=== PATIENT | female | born 1945 | race Caucasian/White ===

== ENCOUNTER 2021-07-14 11:54 | Inpatient (IN) | payer MEDICARE, SELFPAY ==
[2021-07-14] VITALS (54 sets, daily range): BP systolic 99–138; BP diastolic 56–88; PULSE 67–75; RESP 13–41; TEMP 36–36.9; O2SAT 95–100
--- NOTE | 2021-07-14 11:48 | W.ED.GENAD ---
Discharge Plan Disposition Patient Disposition: [facility]IENT Condition: Stable Discharge Details Clinical Impression: Acute GI bleeding, Bloody diarrhea Admit Date/Time: 07/14/21 13:22 Admit Provider: Mark Fowler Attending Provider: Mark Fowler Primary Care Provider: Ana Win ED Provider: Renetta Quick Discharge Data Discharge Date/Time-TO BE ENTERED AT DEPARTURE: 07/14/21 14:10 Medical Decision Making 75-year-old female with a history of atrial fibrillation on Xarelto almost 4 weeks status post a TAVR and started on aspirin at [facility] presents for bloody diarrhea today. She admits to black tarry stools. Vitals within normal limits. Patient appears comfortable and nontoxic. Heme positive stool which is maroon in color. Her abdomen is soft and nontender. Labs obtained on arrival and note a hemoglobin of 10.9, no previous labs to compare. WBC 10.58. Troponin negative. Do not indication for imaging at this time as she has a history of bleeding ulcer in the past and denies any pain, abdomen is nontender and she appears nontoxic. Will give a dose of Protonix, start IV fluids and admit to the hospital for serial hemoglobin and with likely plan for upper endoscopy. Patient got up to use the commode and complained of feeling dizzy. Case discussed with hospitalist who accepts patient for admission. Medical Records Medical records reviewed: Yes I reviewed the patient's medical records. Lab Data Lab results reviewed: Yes I reviewed the patient's lab results. ECG Data Attestation: I personally reviewed and interpreted this ECG (s) as follows: Interpretation: rate of 71, sinus, no acute ST elevation or depression. MN 171, QRS 83, QTc 444. HPI General Mode of arrival: ambulatory. Date/Time Provider Initiated Documentation: 07/14/21 12:07. Limitations to Documentation: no limitations. Information obtained by: patient. HPI Narrative: Patient is a 75-year-old female with a history of atrial fibrillation on Xarelto who was almost 4 weeks status post TAVR at [facility] presents for bloody diarrhea since this morning. She states she had 3 loose large bowel movements which appeared black in the toilet. She does admit to some episodes of sweating around the time of diarrhea. She denies any fever, nausea, vomiting, chest pain, shortness of breath, abdominal pain or rectal pain. She states she has been taking Xarelto for many years for her atrial fibrillation. She states she was started on a baby aspirin after her TAVR. She was also on antibiotics recently for a groin site infection status post her TAVR. She states she finished antibiotics 3 days ago. She does admit to history of a bleeding ulcer seen at [facility] several years ago. Related Data Home Medications Medication Instructions Recorded Confirmed Lactobacillus acidoph-L. bifid 1 cap PO DAILY 07/14/21 07/14/21 Xarelto 20 mg PO DAILY 07/14/21 07/14/21 atenolol 25 mg PO BID 07/14/21 07/14/21 cholecalciferol (vitamin D3) 125 mcg PO DAILY 07/14/21 07/14/21 [Vitamin D3] coenzyme Q10 [CoQ-10] 200 mg PO DAILY 07/14/21 07/14/21 magnesium citrate 225 mg PO DAILY 07/14/21 07/14/21 montelukast [Singulair] 10 mg PO DAILY 07/14/21 07/14/21 rosuvastatin [Crestor] 10 mg PO DAILY 07/14/21 07/14/21 spironolactone [Aldactone] 25 mg PO DAILY 07/14/21 07/14/21 venlafaxine [Effexor XR] 37.5 mg PO DAILY 07/14/21 07/14/21 vitamin [id number] B1 100 ml IM DAILY 07/14/21 07/14/21 vitamin K2 100 mcg PO DAILY 07/14/21 07/14/21 ascorbic acid (vitamin C) [Vitamin 500 mg PO BID #60 tab 07/16/21 C] ferrous sulfate 225 mg PO DAILY #100 ml 07/16/21 pantoprazole [Protonix] 40 mg PO DAILY #60 tab 07/16/21 sucralfate 1 g PO AC & HS #120 tab 07/16/21 Previous Rx's Medication Instructions Recorded ascorbic acid (vitamin C) [Vitamin 500 mg PO BID #60 tab 07/16/21 C] ferrous sulfate 225 mg PO DAILY #100 ml 07/16/21 pantoprazole [Protonix] 40 mg PO DAILY #60 tab 07/16/21 sucralfate 1 g PO AC & HS #120 tab 07/16/21 Allergies Allergy/AdvReac Type Severity Reaction Status Date / Time adhesive tape Allergy Intermediate Other (See Unverified 07/14/21 12:24 Comment) Sulfa (Sulfonamide Allergy Intermediate Hives Unverified 07/14/21 12:24 Antibiotics) succinylcholine AdvReac Severe Other (See Unverified 07/14/21 12:24 Comment) ibuprofen AdvReac Intermediate Other (See Unverified 07/14/21 12:24 Comment) Opioids - Morphine Analogues AdvReac Intermediate Other (See Unverified 07/14/21 12:24 Comment) Review of Systems All systems reviewed & are unremarkable except as noted in HPI and below Constitutional Constitutional: Reports as per HPI, Denies chills and Denies fever(s) Eyes Eyes: Denies blurry vision ENT Ears, Nose, Mouth, and Throat: Denies dizziness, Denies sore throat and Denies throat swelling Cardiovascular Cardiovascular: Denies chest pain and Denies dyspnea Respiratory Respiratory: Denies cough and Denies dyspnea Gastrointestinal Gastrointestinal: Denies abdominal pain, Reports melena, Denies diarrhea and Denies vomiting Genitourinary Genitourinary: Denies hematuria and Denies dysuria Musculoskeletal Musculoskeletal: Denies back pain and Denies numbness Integumentary/Breasts Skin/Breast: Denies lesions and Denies rash Neurologic Neurologic: Denies dizziness, Denies localized weakness and Denies numbness Allergic/Immunologic Allergic/Immunologic: Denies throat swelling [facility] Medical History Detached retina, left Replaced 50yrs ago with a plastic buckle Surgical History History of heart valve replacement TAVR 06/17/21 at [facility] History of knee replacement Bilateral knee replament in 2006, Right knee redone in 2014 History of shoulder surgery Both Shoulders replaced Right one in 2014, left in 2017. Left one got infection had a spacer for a year then had to be redone backwards. Social History Smoking/Tobacco Use Status: Never Smoking risk assessment performed?: Yes Alcohol Intake: never Drug use: Never Substance use type: does not use Do you feel safe at home: Yes Additional Social history: Lives at home with her and her dog Exam Const General: cooperative and no acute distress HENMT Head: normal to inspection Face and sinus: normal facial exam Eyes General: appearance normal, both eyes and all related structures EOM: EOM intact bilaterally Neck Neck: normal visual inspection and No submandibular swelling Lymphatic: no lymphadenopathy noted Chest Chest: normal inspection of the chest and no tenderness Resp Effort & Inspection: normal respiratory effort and able to speak in complete sentences Auscultation: clear to auscultation bilaterally Cardio Rate: regular rate Rhythm: regular rhythm GI Inspection: normal to inspection Palpation: soft, not firm, not rigid and nontender Auscultation: hypoactive bowel sounds Rectal Exam - female: heme positive stool Rectal exam heme positive - female: gross blood, No hemorrhoids (difficult to fully assess due to dried blood), No mass and other (Dried maroon blood around the anus.) Skin General skin exam: no rashes or lesions noted Neuro General: patient alert, patient awake and patient oriented x3 Cognition: normal cognition Speech: speech normal Motor: muscle tone normal throughout Sensory Exam: no sensory deficits noted Extrem General: normal to inspection, full ROM, capillary refill normal, no calf tenderness bilaterally and no edema Upper/lower leg/hip images: 1. 2mm x 1cm open wound R groin, healing well, no drainage, tenderness, erythema, edema. Psych Appearance: grossly normal Mental Status: mental status grossly normal Speech and Movement: speech and movement normal Affect: normal affect
--- NOTE | 2021-07-14 12:00 | RT.EKG_ITS ---
APPROVED REPORT Exam: Resting ECG Reason for Exam: gi bleed Patient Location: E HR:71 bpm ECG Measurements Heart Rate 71 AXIS MT 171 P 0 QRSd 84 QRS 20 QT 409 T 19 QTc 444 Conclusion Sinus rhythm...normal P axis, V-rate 60- 99. Sinus. No STEMI. I have reviewed and interpreted ECG and agree with software generated interpretation.
[2021-07-14 12:33] LABS: Abs Immature Grans 0.03 10^3/uL (0.0-0.06); Absolute Basophil Count 0.08 10^3/uL (0.0-0.2); Absolute Lymphocyte Count 1.88 10^3/uL (1.2-3.4); Absolute Monocyte Count 0.77 10^3/uL (0.1-0.8); Absolute Neutrophil Count 7.72 10^3/uL (1.2-6.7); Basophils % 0.8; Eosinophils % 0.9; HCT 34.7 % (36.0-46.0); HGB 10.9 g/dL (11.2-15.7); Immature Grans % 0.3; Lymphocytes % 17.8; MCH 28.2 pg (27.0-33.0); MCHC 31.4 % (32.0-36.0); MCV 89.7 fL (80-95); MPV 9.6 fL (8.0-11.0); Monocytes % 7.3; Neutrophils % 72.9; Nucleated RBC 0 %; Platelet Count 274 10^3/uL (130-400); RBC 3.87 10^6/uL (3.93-5.22); RDW 13.2 % (11.7-14.6); RDW-SD 43.5 fL; WBC 10.58 10^3/uL (4.4-10.8)
[2021-07-14 12:47] LABS: BUN 41 mg/dL (7-18); Calcium 8.6 mg/dL (8.5-10.1); Glucose 96 mg/dL (74-106)
[2021-07-14 12:48] LABS: ALT 19 U/L (14-59); AST 17 U/L (15-37); Alkaline Phosphatase 66 U/L (46-116); Anion Gap 4.9 mmol/L (3-11); Bilirubin, Total 0.3 mg/dL (0.2-1.0); CO2 30.1 mmol/L (21.0-32.0); Chloride 108 mmol/L (98-107); Magnesium 2.1 mg/dL (1.8-2.4); Potassium 4.7 mmol/L (3.5-5.1); Sodium 143 mmol/L (136-145); Total Protein 6.9 g/dL (6.4-8.2); Troponin I < 0.05 ng/mL (<0.06)
[2021-07-14] MEDS: Normal Saline Flush 10 ML SYR IVP ×2 (13:50→20:40)
[2021-07-14] MEDS: Normal Saline 250 ML IV (13:50)
[2021-07-14] MEDS: Pantoprazole 40 MG VIAL IVP ×2 (13:50→20:39)
[2021-07-14 13:55] LABS: Bilirubin Negative (Negative); Blood Large (Negative); Clarity Sl Cloudy (Clear); Epithelial Cells Moderate HPF (Negative); Glucose Negative (Negative); Ketones Negative (Negative); Leukocyte Esterase Trace (Negative); Nitrite Negative (Negative); Specific Gravity 1.025 (1.005-1.025); Urobilinogen 0.2 EU/dL (Up TO 0.2); pH 5.5 (5-8)
[2021-07-14 13:56] LABS: Bacteria Many HPF (Negative); C & S Indicated? No/Sq. Contamination; Casts 0-2 Hyaline LPF (Negative); Crystals Negative HPF (Negative); Mucus Trace (Negative); Other Cells Mod Transitional (Negative)
[2021-07-14 14:01] LABS: Source Nasal/Nares
[2021-07-14 14:55] LABS: COVID-19 PCR Negative (Negative)
--- NOTE | 2021-07-14 15:07 | W.PM.HP.N ---
Date of service: 07/14/21 Time of Service: 15:07 Assessment and Plan Assessment and plan (1) Acute GI bleeding: Status: Acute Assessment and plan: vitals stable, H&H . continue protonix 40 mg IV BID stop asa and xarelto. keep NPO, surgical consult cycle H&H will check cdiff in setting of recent antibiotic use for groin infection (2) S/P TAVR (transcatheter aortic valve replacement): Status: Chronic Assessment and plan: stable, will monitor per outpatient cardiology. (3) Afib: Status: Chronic Assessment and plan: rate controlled continue home medication hold anticoagulation discussed with Dr Fowler History of Present Illness History of Present Illness Chief Complaint: gi bleed Narrative: presents to ED for reports of black tarry stooling, feeling like headed. has had a remote history of gi bleeding. recent TAVR. anticoagulated on xarelto for history of afib. new medication since TAVR is asa. she was also treated postoperatively for a groin site infection with antibiotics. patient is hemodynamically stable with no further bleeding noted. Hospitalist contacted and will be referred to observation. she has been given IV protonix. Review of Systems All systems reviewed & are unremarkable except as noted in HPI and below [facility] Medical History (Updated 07/14/21 @ 15:15 by Fidelia Mukherjee NP) Detached retina, left Replaced 50yrs ago with a plastic buckle Surgical History (Updated 07/14/21 @ 15:18 by Fidelia Mukherjee NP) History of heart valve replacement TAVR 06/17/21 at [facility] History of knee replacement Bilateral knee replament in 2005, Right knee redone in 2014 History of shoulder surgery Both Shoulders replaced Right one in 2014, left in 2016. Left one got infection had a spacer for a year then had to be redone backwards. Social History Smoking/Tobacco Use Status: Never Smoking risk assessment performed?: Yes Alcohol Intake: never Drug use: Never Substance use type: does not use Do you feel safe at home: Yes Additional Social history: Lives at home with her and her dog Meds Allergies and Home Medications Allergies Allergy/AdvReac Type Severity Reaction Status Date / Time adhesive tape Allergy Intermediate Other (See Unverified 07/14/21 12:24 Comment) Sulfa (Sulfonamide Allergy Intermediate Hives Unverified 07/14/21 12:24 Antibiotics) succinylcholine AdvReac Severe Other (See Unverified 07/14/21 12:24 Comment) ibuprofen AdvReac Intermediate Other (See Unverified 07/14/21 12:24 Comment) Opioids - Morphine Analogues AdvReac Intermediate Other (See Unverified 07/14/21 12:24 Comment) Home Medications Medication Instructions Recorded Confirmed Type Lactobacillus acidoph-L. bifid 1 cap PO DAILY 07/14/21 07/14/21 History aspirin [Aspirin Low Dose] 81 mg PO DAILY 07/14/21 07/14/21 History atenolol 25 mg PO BID 07/14/21 07/14/21 History cholecalciferol (vitamin D3) 125 mcg PO DAILY 07/14/21 07/14/21 History [Vitamin D3] coenzyme Q10 [CoQ-10] 200 mg PO DAILY 07/14/21 07/14/21 History magnesium citrate 225 mg PO DAILY 07/14/21 07/14/21 History montelukast [Singulair] 10 mg PO DAILY 07/14/21 07/14/21 History rivaroxaban [Xarelto] 20 mg PO DAILY 07/14/21 07/14/21 History rosuvastatin [Crestor] 10 mg PO DAILY 07/14/21 07/14/21 History spironolactone [Aldactone] 25 mg PO DAILY 07/14/21 07/14/21 History venlafaxine [Effexor XR] 37.5 mg PO DAILY 07/14/21 07/14/21 History vitamin [id number] B1 100 ml IM DAILY 07/14/21 07/14/21 History vitamin K2 100 mcg PO DAILY 07/14/21 07/14/21 History Exam Const General: cooperative and no acute distress [facility] Head: normal to inspection Face and sinus: normal facial exam Eyes General: appearance normal, both eyes and all related structures EOM: EOM intact bilaterally Neck Neck: normal visual inspection Lymphatic: no lymphadenopathy noted Chest Chest: normal inspection of the chest Resp Effort & Inspection: normal respiratory effort and able to speak in complete sentences Auscultation: clear to auscultation bilaterally Cardio Rate: regular rate Rhythm: regular rhythm GI Inspection: normal to inspection Palpation: soft, not firm, not rigid and nontender Auscultation: hypoactive bowel sounds Skin General skin exam: no rashes or lesions noted Neuro General: patient alert, patient awake and patient oriented x3 Cognition: normal cognition Speech: speech normal Extrem General: normal to inspection, full ROM, capillary refill normal, no calf tenderness bilaterally and no edema Psych Appearance: grossly normal Mental Status: mental status grossly normal Speech and Movement: speech and movement normal Affect: normal affect Results Labs Result diagrams: 07/14/21 12:05 07/14/21 12:05 Labs: Laboratory Results - last 24 hr 07/14/21 07/14/21 07/14/21 12:05 12:05 13:35 WBC 10.58 RBC 3.87 L Hgb 10.9 L Hct 34.7 L MCV 89.7 MCH 28.2 MCHC 31.4 L RDW 13.2 Plt Count 274 MPV 9.6 Immature Gran % 0.3 Neutrophils % 72.9 Lymphocytes % 17.8 Monocytes % 7.3 Eosinophils % 0.9 Basophils % 0.8 Nucleated RBC % 0 Absolute Neutrophils 7.72 H Absolute Lymphocytes 1.88 Absolute Monocytes 0.77 Absolute Eosinophils 0.10 Absolute Basophils 0.08 Sodium 143 Potassium 4.7 Chloride 108 H Carbon Dioxide 30.1 Anion Gap 4.9 BUN 41 H Creatinine 1.0 Estimated GFR/1.73 m2 54.20 Glucose 96 Calcium 8.6 Magnesium 2.1 Total Bilirubin 0.3 AST 17 ALT 19 Alkaline Phosphatase 66 Troponin I < 0.05 Total Protein 6.9 Albumin 3.0 L Urine Color Yellow Urine Clarity Sl Cloudy Urine pH 5.5 Ur Specific [place] 1.025 Urine Protein Negative Urine Ketones Negative Urine Blood Large H Urine Nitrite Negative Urine Bilirubin Negative Urine Urobilinogen 0.2 Ur Leukocyte Esterase Trace Urine RBC 10-20 H Urine WBC 10-20 H Ur Epithelial Cells Moderate Urine Crystals Negative Urine Bacteria Many Urine Casts 0-2 Hyaline Urine Mucus Trace Urine Other Mod Transitional Ur Culture Indicated? No/Sq. Contamination Urine Glucose Negative COVID-19 Source 07/14/21 13:55 WBC RBC Hgb Hct MCV MCH MCHC RDW Plt Count MPV Immature Gran % Neutrophils % Lymphocytes % Monocytes % Eosinophils % Basophils % Nucleated RBC % Absolute Neutrophils Absolute Lymphocytes Absolute Monocytes Absolute Eosinophils Absolute Basophils Sodium Potassium Chloride Carbon Dioxide Anion Gap BUN Creatinine Estimated GFR/1.73 m2 Glucose Calcium Magnesium Total Bilirubin AST ALT Alkaline Phosphatase Troponin I Total Protein Albumin Urine Color Urine Clarity Urine pH Ur Specific [place] Urine Protein Urine Ketones Urine Blood Urine Nitrite Urine Bilirubin Urine Urobilinogen Ur Leukocyte Esterase Urine RBC Urine WBC Ur Epithelial Cells Urine Crystals Urine Bacteria Urine Casts Urine Mucus Urine Other Ur Culture Indicated? Urine Glucose COVID-19 Source Nasal/Nares Last Vital Signs Temp 36.0 C L 07/14/21 14:37 Pulse 73 07/14/21 14:37 Resp 18 07/14/21 14:37 BP 99/56 L 07/14/21 14:37 Pulse Ox 100 07/14/21 14:37
--- NOTE | 2021-07-14 15:22 | W.SURGCON ---
Date of service: 07/14/21 Time of Service: 15:22 Assessment and Plan Assessment and plan (1) S/P TAVR (transcatheter aortic valve replacement): Status: Chronic (2) Afib: Status: Chronic (3) Acute GI bleeding: Status: Acute (4) Bloody diarrhea: Status: Acute (5) Anemia due to blood loss, acute: Status: Acute Assessment and plan: Risks: Informed consent is obtained for the procedural (explained in simple layman's terms that the pt and/or family could understand) explaining risks vs benefits and alternatives to the procedure and consequences if we do not do the procedure and need/rational for the procedure. Risks include but are not limited to:bleeding, infection, perforation of colon. This would necessitate emergency surgery to repair the damage w/ possible ostomy; and other associated complications w/ the required surgery. Also complications of anesthesia including aspiration,AL/CVA/. -PPI & Carafate -Venofer -Hold asa and Xeralto -Unclear if it is OK to be holding anti-coags this early after have hading the TAVR -Will give clinda prior to procedure -cont supportive care History of Present Illness Narrative: gi bleed Narrative: presents to ED for reports of black tarry stooling, feeling like headed. has had a remote history of gi bleeding. recent TAVR. anticoagulated on xarelto for history of afib. new medication since TAVR is asa. she was also treated postoperatively for a groin site infection with antibiotics. patient is hemodynamically stable with no further bleeding noted pt has never had a CE. Pt has been having black tarry stools for 36hrs. She is on ASA/xarlto. She has a hx of ulcers that was about 5 yrs ago. She takes prilosec but only prn. She denies H/I. But takes the PPI only when she has H/I. She has not been vomiting blood. She has no pain or difficuluty swallowing. She has no abdominal pain at the time of interview. She had no problems w/ aenthesia in the past. case is [place] [facility] [place] s/p TAVR there no contraindication to proceed with upper endoscopy. He was also made aware of recent groin infection with treatment that is resolved. No other recommendations at this time. Dr Kam notified that she is cleared for endoscopy tomorrow. pt had a puncture site infection adn was recently on abx that were prescribed by her PCP from [place]. She completed these already and was having diarrhea. C Diff if pd. hgb.9.5. Pt feels week adn cold. Consults Consult date: 07/14/21 Review of Systems All systems reviewed & are unremarkable except as noted in HPI and below PFSH Medical History Detached retina, left Replaced 50yrs ago with a plastic buckle Surgical History History of heart valve [place] [facility] History of knee replacement Bilateral knee replament in 2005, Right knee redone in 2014 History of shoulder surgery Both Shoulders replaced Right one in 2014, left in 2016. Left one got infection had a spacer for a year then had to be redone backwards. Social History Smoking/Tobacco Use Status: Never Smoking risk assessment performed?: Yes Alcohol Intake: never Drug use: Never Substance use type: does not use Do you feel safe at home: Yes Additional Social history: Lives at home with her and her dog Exam Resp Effort & Inspection: normal respiratory effort and able to speak in complete sentences Auscultation: clear to auscultation bilaterally Cardio Rate: regular rate Rhythm: abnormal rhythm irregularly irregular GI Other: soft and non tender and good bs. pt not had a BM since she has been in the hospital Results Last Vital Signs Temp 36.0 C L 07/14/21 14:37 Pulse 73 07/14/21 14:37 Resp 18 07/14/21 14:37 BP 99/56 L 07/14/21 14:37 Pulse Ox 100 07/14/21 14:37 Labs Result diagrams: 07/14/21 20:27 07/14/21 12:05 Labs: Laboratory Results - last 24 hr 07/14/21 07/14/21 07/14/21 12:05 12:05 13:35 WBC 10.58 RBC 3.87 L Hgb 10.9 L Hct 34.7 L MCV 89.7 MCH 28.2 MCHC 31.4 L RDW 13.2 Plt Count 274 MPV 9.6 Immature Gran % 0.3 Neutrophils % 72.9 Lymphocytes % 17.8 Monocytes % 7.3 Eosinophils % 0.9 Basophils % 0.8 Nucleated RBC % 0 Absolute Neutrophils 7.72 H Absolute Lymphocytes 1.88 Absolute Monocytes 0.77 Absolute Eosinophils 0.10 Absolute Basophils 0.08 Sodium 143 Potassium 4.7 Chloride 108 H Carbon Dioxide 30.1 Anion Gap 4.9 BUN 41 H Creatinine 1.0 Estimated GFR/1.73 m2 54.20 Glucose 96 Calcium 8.6 Magnesium 2.1 Total Bilirubin 0.3 AST 17 ALT 19 Alkaline Phosphatase 66 Troponin I < 0.05 Total Protein 6.9 Albumin 3.0 L Urine Color Yellow Urine Clarity Sl Cloudy Urine pH 5.5 Ur Specific [place] 1.025 Urine Protein Negative Urine Ketones Negative Urine Blood Large H Urine Nitrite Negative Urine Bilirubin Negative Urine Urobilinogen 0.2 Ur Leukocyte Esterase Trace Urine RBC 10-20 H Urine WBC 10-20 H Ur Epithelial Cells Moderate Urine Crystals Negative Urine Bacteria Many Urine Casts 0-2 Hyaline Urine Mucus Trace Urine Other Mod Transitional Ur Culture Indicated? No/Sq. Contamination Urine Glucose Negative COVID-19 Source 07/14/21 13:55 WBC RBC Hgb Hct MCV MCH MCHC RDW Plt Count MPV Immature Gran % Neutrophils % Lymphocytes % Monocytes % Eosinophils % Basophils % Nucleated RBC % Absolute Neutrophils Absolute Lymphocytes Absolute Monocytes Absolute Eosinophils Absolute Basophils Sodium Potassium Chloride Carbon Dioxide Anion Gap BUN Creatinine Estimated GFR/1.73 m2 Glucose Calcium Magnesium Total Bilirubin AST ALT Alkaline Phosphatase Troponin I Total Protein Albumin Urine Color Urine Clarity Urine pH Ur Specific [place] Urine Protein Urine Ketones Urine Blood Urine Nitrite Urine Bilirubin Urine Urobilinogen Ur Leukocyte Esterase Urine RBC Urine WBC Ur Epithelial Cells Urine Crystals Urine Bacteria Urine Casts Urine Mucus Urine Other Ur Culture Indicated? Urine Glucose COVID-19 Source Nasal/Nares
[2021-07-14] MEDS: Lactated Ringers 1,000 ML 80 ML IV (15:53)
[2021-07-14] MEDS: Sucralfate 1 GM TAB PO ×2 (17:45→23:13)
[2021-07-14] MEDS: Atenolol 25 MG TAB PO (20:19)
[2021-07-14 20:56] LABS: HCT 29.7 % (36.0-46.0); HGB 9.5 g/dL (11.2-15.7)
[2021-07-15] VITALS (11 sets, daily range): BP systolic 87–152; BP diastolic 48–72; PULSE 69–74; RESP 15–20; TEMP 35.8–36.8; O2SAT 91–99; BMI 45.7
[2021-07-15] MEDS: IRON SUCROSE COMPLEX 200 MG in Normal Saline 100 ML 400 MG IVPB (00:47)
[2021-07-15] MEDS: Lactated Ringers 1,000 ML 80 ML IV ×2 (01:05→10:34)
[2021-07-15 01:45] LABS: HCT 28.1 % (36.0-46.0); HGB 8.9 g/dL (11.2-15.7)
[2021-07-15 06:55] LABS: Abs Immature Grans 0.02 10^3/uL (0.0-0.06); Absolute Basophil Count 0.09 10^3/uL (0.0-0.2); Absolute Eosinophil Count 0.16 10^3/uL (0.0-0.7); Absolute Lymphocyte Count 1.94 10^3/uL (1.2-3.4); Absolute Monocyte Count 0.56 10^3/uL (0.1-0.8); Absolute Neutrophil Count 4.06 10^3/uL (1.2-6.7); Basophils % 1.3; Eosinophils % 2.3; HCT 28.3 % (36.0-46.0); HGB 8.9 g/dL (11.2-15.7); Immature Grans % 0.3; Lymphocytes % 28.4; MCH 27.5 pg (27.0-33.0); MCHC 31.4 % (32.0-36.0); MCV 87.3 fL (80-95); MPV 9.5 fL (8.0-11.0); Monocytes % 8.2; Neutrophils % 59.5; Nucleated RBC 0 %; Platelet Count 227 10^3/uL (130-400); RBC 3.24 10^6/uL (3.93-5.22); RDW 13.4 % (11.7-14.6); RDW-SD 43.2 fL
[2021-07-15 07:17] LABS: WBC 6.83 10^3/uL (4.4-10.8)
[2021-07-15 07:55] LABS: Calcium 8.3 mg/dL (8.5-10.1); Glucose 96 mg/dL (74-106)
[2021-07-15 07:56] LABS: Anion Gap 4.6 mmol/L (3-11); BUN 29 mg/dL (7-18); CO2 29.4 mmol/L (21.0-32.0); CREATININE 0.9 mg/dL (0.55-1.02); Chloride 110 mmol/L (98-107); Potassium 3.9 mmol/L (3.5-5.1); Sodium 144 mmol/L (136-145)
--- NOTE | 2021-07-15 08:18 | ANES.PREOP_ITS ---
General Info Date of Service Date Performed: 07/15/21 Height: 5 ft 8 in Weight: 136.36 kg Body Mass Index (BMI): 45.7 Surgical Procedure: Operation Date: 07/15/21 13:20 Proposed Procedures Side Surgeon p Gastroscopy Miriam Kam, DO Meds Allergies and Home Medications Allergies Allergy/AdvReac Type Severity Reaction Status Date / Time adhesive tape Allergy Intermediate Other (See Unverified 07/14/21 12:24 Comment) Sulfa (Sulfonamide Allergy Intermediate Hives Unverified 07/14/21 12:24 Antibiotics) succinylcholine AdvReac Severe Other (See Unverified 07/14/21 12:24 Comment) ibuprofen AdvReac Intermediate Other (See Unverified 07/14/21 12:24 Comment) Opioids - Morphine Analogues AdvReac Intermediate Other (See Unverified 07/14/21 12:24 Comment) Home Medication Medication Instructions Recorded Lactobacillus acidoph-L. bifid 1 cap PO DAILY 07/14/21 aspirin [Aspirin Low Dose] 81 mg PO DAILY 07/14/21 atenolol 25 mg PO BID 07/14/21 cholecalciferol (vitamin D3) 125 mcg PO DAILY 07/14/21 [Vitamin D3] coenzyme Q10 [CoQ-10] 200 mg PO DAILY 07/14/21 magnesium citrate 225 mg PO DAILY 07/14/21 montelukast [Singulair] 10 mg PO DAILY 07/14/21 rivaroxaban [Xarelto] 20 mg PO DAILY 07/14/21 rosuvastatin [Crestor] 10 mg PO DAILY 07/14/21 spironolactone [Aldactone] 25 mg PO DAILY 07/14/21 venlafaxine [Effexor XR] 37.5 mg PO DAILY 07/14/21 vitamin K00-[id number] B1 100 ml IM DAILY 07/14/21 vitamin K2 100 mcg PO DAILY 07/14/21 Current Visit Medications: Current Medications Generic Name Dose Route Start Last Admin Trade Name Freq PRN Reason Stop Dose Admin Atenolol 25 mg 07/14/21 20:00 07/14/21 20:19 Atenolol 25 Mg Tab PO 25 mg BID CAROLYNE Administration Dimethicone/Zinc Oxide 0 gm 07/14/21 13:22 Ricardo Protect Cream 142 Gm Tube TP PRN PRN Ringer's Solution 1,000 mls @ 80 mls/hr 07/14/21 13:45 07/15/21 01:05 IV 80 mls/hr INFUSION CAROLYNE Administration Clindamycin Phosphate/Dextrose 600 mg in 50 mls @ 100 mls/hr 07/15/21 06:00 Cleocin In D5w IVPB PREOP CAROLYNE Nystatin 15 gm 07/15/21 08:30 Nystatin Powder 15 Gm Jar TP BID CAROLYNE Pantoprazole Sodium 40 mg 07/14/21 20:00 07/14/21 20:39 Pantoprazole 40 Mg Vial IVP 40 mg BID CAROLYNE Administration Sodium Chloride 0 ml 07/14/21 13:49 07/14/21 20:40 Normal Saline Flush 10 Ml Syr IVP 30 ml PRN PRN Administration Sucralfate 1 gm 07/14/21 22:00 07/14/21 23:13 Sucralfate 1 Gm Tab PO 1 gm HS CAROLYNE Administration PFSH Active Problems Active Problems: Problem Status Onset Code Anemia due to blood loss, acute D62 S/P TAVR (transcatheter aortic valve replacement) Z95.2 Afib I48.91 Acute GI bleeding K92.2 Bloody diarrhea R19.7 Medical History Medical History Detached retina, left Replaced 50yrs ago with a plastic buckle Surgical History Surgical History [place] [facility] [place] [facility] [place] of knee replacement Bilateral knee replament in 2005, Right knee redone in 2014 History of shoulder surgery Both Shoulders replaced Right one in 2014, left in 2016. Left one got infection had a spacer for a year then had to be redone backwards. Tobacco Smoking/Tobacco Use Status: Never Alcohol Alcohol Intake: never Substance Use Substance use: Never Substance use type: does not use Vital Signs and Lab Results Vital Signs Most Recent Vital Signs in EMR: Most Recent Vital Signs Temp Pulse Resp BP Pulse Ox 36.9 C 70 18 113/68 95 07/14/21 23:07 07/14/21 23:07 07/14/21 23:07 07/14/21 23:07 07/14/21 23:07 Lab Results Result Diagrams: 07/15/21 06:20 07/15/21 06:20 Blood Type / Crossmatch: No Data to Display Complete Blood Count: White Blood Count 6.83 10^3/uL (4.4-10.8) 07/15/21 06:20 07/15/21 Red Blood Count 3.24 10^6/uL (3.93-5.22) L 07/15/21 06:20 07/15/21 Hemoglobin 8.9 g/dL (11.2-15.7) L 07/15/21 06:20 07/15/21 Hematocrit 28.3 % (36.0-46.0) L 07/15/21 06:20 07/15/21 Platelet Count 227 10^3/uL (130-400) 07/15/21 06:20 07/15/21 Complete Metabolic Panel: Sodium Level 144 mmol/L (136-145) 07/15/21 06:20 07/15/21 Potassium Level 3.9 mmol/L (3.5-5.1) 07/15/21 06:20 07/15/21 Chloride Level 110 mmol/L (98-107) H 07/15/21 06:20 07/15/21 Carbon Dioxide Level 29.4 mmol/L (21.0-32.0) 07/15/21 06:20 07/15/21 Blood Urea Nitrogen 29 mg/dL (7-18) H 07/15/21 06:20 07/15/21 Creatinine 0.9 mg/dL (0.55-1.02) 07/15/21 06:20 07/15/21 Estimated GFR/1.73 m2 >= 60.00 (mL/min/1.73m2) 07/15/21 06:20 07/15/21 Magnesium Level 2.1 mg/dL (1.8-2.4) 07/14/21 12:05 07/14/21 Calcium Level 8.3 mg/dL (8.5-10.1) L 07/15/21 06:20 07/15/21 Albumin 3.0 g/dL (3.4-5.0) L 07/14/21 12:05 07/14/21 Glucose Level 96 mg/dL (74-106) 07/15/21 06:20 07/15/21 Liver Function Panel: Alanine Aminotransferase (ALT/SGPT) 19 U/L (14-59) 07/14/21 12:05 07/14/21 Aspartate Amino Transf (AST/SGOT) 17 U/L (15-37) 07/14/21 12:05 07/14/21 Coagulation Panel: No Data to Display Cardiac Panel: Troponin I < 0.05 ng/mL (<0.06) 07/14/21 12:05 07/14/21 Arterial Blood Gas: No Data to Display Venous Blood Gas: No Data to Display Pancreas Panel: No Data to Display Thyroid Panel: No Data to Display Infectious Disease: Coronavirus (COVID-19)(PCR) Negative (Negative) 07/14/21 13:55 07/14/21 Coronavirus 2019 Source Nasal/Nares 07/14/21 13:55 07/14/21 Blood Cultures: No Data to Display Toxicology Panel: No Data to Display Imaging and Studies Imaging and Studies Echocardiogram Summary: 06/17/2021: LVEF 65%, moderate LVH, no LVOT, PAS 35 mmhg. mild MR, AoV peak gradient 22 mmhg, MICHELLE 2 cm2 Cardiac Catheterization Summary: 06/2021: non obstructive CAD. Anesthesia Assessment and Plan Anesthesia History Personal History: Pseudocholinesterase Deficiency Family History: No Family History of Anesthesia Complications Exercise Tolerance Exercise Tolerance: Metabolic Equivalents<4 Cardiac & Pulmonary Exam Cardiac Exam: Normal S1/S2 Heart Sounds Pulmonary Exam: Clear Bilateral Breath Sounds Implantable Cardiac Device Does patient have a Pacemaker or an ICD?: No Airway Exam Known Difficult Airway: No Mallampati Class: 2 Mouth Opening: Narrow (< 3cm) Thyromental Distance: Less than 3 cm Neck Range of Motion: Limited ROM Neck Circumference: Thick Teeth Condition: Edentulous ASA Classification ASA Score: ASA 3 Emergency Case?: No NPO Status NPO Status: NPO Clears >2 hours, Solids >8 hours Anesthesia Plan Resuscitation Status: Full Code Anesthesia Technique: General Anesthesia Airway Planned: Natural Airway Monitors Used: Standard Monitors Preoperative Comments:: 75 yo female for EGD Sig PMHx: GERD, ANNE, pAFIB, HTN, BMI 45.7 Previous Anes: -TAVR 06/2021 with teo 0.04 - 0.08 mcg/kg/min, tolerated well.
[2021-07-15] MEDS: Pantoprazole 40 MG VIAL IVP ×2 (08:49→19:45)
[2021-07-15] MEDS: Normal Saline Flush 10 ML SYR IVP ×2 (08:49→19:45)
[2021-07-15] MEDS: CLINDAMYCIN 600 MG/50 ML BAG 100 MG IVPB (10:37)
--- NOTE | 2021-07-15 11:01 | W.PM.ENDDOP ---
Date of service: 07/15/21 Time of Service: 11:01 Endoscopy Report DATE OF PROCEDURE: 07/15/21 PRE-OP DIAGNOSIS: moderate duodenitis/gastritis. small H. hernia POST-OP DIAGNOSIS: same SURGEON: Miriam Kam ANESTHESIA TYPE: General:No Airway ESTIMATED BLOOD LOSS: 0 PATHOLOGY: none sent COMPLICATIONS: None DISPOSITION: PACU PROCEDURE DESCRIPTION: After informed consent was obtained the patient was take to the procedure room and placed in a supine position. Monitors were applied and a time out was done. The patients name, date of , procedure type, allergies to medications and metal in their body was reviewed. A bite block was placed and the patient was sedated. Once sedated and comfortable the gastroscope was advanced through the oropharynx which was grossly normal into the esophagus. The proximal and mid-esophagus were nl. In the distal esophagus there was no varices, diverticula, ulceration or esophagitis. The scope was advanced into the stomach and through the pylorus into the 3rd portion of the duodenum. The duodenum was noted to be moderate duodenitis. There is no signs of any active or old bleeding. There are no discrete ulcers.. minimal Biopsies were done because she is only been off of her blood thinners for less than 24 hours.. There were no there is ulcers. Mild to moderate gastritis in a striped fashion radiating from the antrum. There are no discrete ulcers. The scope was retroflexed. The cardia and fundus were noted to be normal. The scope was retracted back into the esophagus. The Z line was regular. She has a patulous hiatus. There is no stomach herniation or movement of the GE junction. The scope was removed and the patient was woken up and taken back to [facility] in stable condition.
--- NOTE | 2021-07-15 11:07 | W.ANESPOSTOP ---
Postoperative Evaluation Date, Time and Location Date Performed: 07/15/21 Time Performed: 11:07 Patient Location: PACU Vital Signs Most Recent Imported Vital Signs: Most Recent Vital Signs Temp Pulse Resp BP Pulse Ox 36.8 C 69 20 92/48 L 96 07/15/21 09:08 07/15/21 09:08 07/15/21 09:08 07/15/21 09:08 07/15/21 09:08 Pain Score Most Recent Pain Score: Most Recent Pain Score Pain Level 0 07/15/21 09:08 Assessment Mental Status: Awake (Alert & Oriented to Patient Baseline) Airway and Respiratory Function: Patent airway with normal (patient baseline) respiratory exam Cardiovascular Function: Hemodynamically Stable Hydration Status: Adequately Hydrated Nausea & Vomiting: No Nausea or Vomiting Pain: Pt. Denies Any Pain Peripheral Nerve Block: Patient did not receive a nerve block
[2021-07-15] MEDS: Atenolol 25 MG TAB PO ×2 (11:42→19:44)
[2021-07-15] MEDS: Sucralfate 1 GM TAB PO ×4 (11:43→21:27)
[2021-07-15 12:04] LABS: HGB 9.1 g/dL (11.2-15.7)
--- NOTE | 2021-07-15 13:09 | PDOC.CMDIS ---
- If Service Date Differs Date of service: 07/15/21 Time of Service: 13:09 LACE Index Scoring Tool - Questions: Length of Stay (in days): 1 Acuity (Admit via E.D.?): Yes E.D. Visits: 1 - Answers: Total Score: 5 Risk of Readmission: Low Risk Care Management Discharge Reason for Hospitalization: GI Bleed Discharge Plan: Tianna will discharge home when ready per MD. She will follow up with her PCP and plan of care as prescribed. She will transport via private vehicle with her friend and neighbor. Patient/Family Education Needs: Review discharge instructions, discuss Ask Me Three.
[2021-07-15] MEDS: Nystatin POWDER 15 GM JAR TP ×2 (14:00→19:45)
--- NOTE | 2021-07-15 14:28 | DSE_ITS ---
Date of service: 07/15/21 Time of Service: 14:28 DS: Diagnosis Discharge Diagnosis (1) Acute GI bleeding: Start date: 07/15/21 Start time: 14:29 Status: Acute Asessment and Plan: S/p endoscopy with Dr. Conde today. There was no active bleeding only gastritis and duodenitis. Per surgery d/c asa, PPI BID with carafate AC&HS continue xarelto tolerating diet, ready for discharge today. (2) Anemia due to blood loss, acute: Start date: 07/15/21 Start time: 15:09 Status: Acute Asessment and Plan: Stable i (3) S/P TAVR (transcatheter aortic valve replacement): Start date: 07/15/21 Start time: 15:10 Status: Chronic Asessment and Plan: Will need to continue xarelto. D/C asa (4) Afib: Start date: 07/15/21 Start time: 15:11 Status: Chronic Asessment and Plan: Rate controlled. Continue home meds Resume anticoagulation (5) Bloody diarrhea: Start date: 07/15/21 Start time: 15:28 Status: Resolved Asessment and Plan: Resolved discussed with Dr. Fowler Discharge Plan Disposition Patient Disposition: HOME Condition: Stable Discharge Details Reason For Visit: GI Bleed Admit Date/Time: 07/14/21 13:22 Admit Provider: Mark Fowler Attending Provider: Mark Fowler Primary Care Provider: [facility] Course Hospital Course: Admitted from ED for black tarry stools. She was found on the side of the road in her car. Home Meds and New Rx's Prescriptions: No Action atenolol 25 mg Tablet 25 mg PO BID RF: 0 Xarelto 20 mg Tablet 20 mg PO DAILY RF: 0 spironolactone [Aldactone] 25 mg Tablet 25 mg PO DAILY RF: 0 vitamin K2 100 mcg Capsule 100 mcg PO DAILY RF: 0 coenzyme Q10 [CoQ-10] 100 mg Capsule 200 mg PO DAILY RF: 0 vitamin Z48-otgceli B1 100-1 mg/mL Solution 100 ml IM DAILY RF: 0 cholecalciferol (vitamin D3) [Vitamin D3] 125 mcg (5,000 unit) Tablet 125 mcg PO DAILY RF: 0 magnesium citrate 125 mg Capsule 225 mg PO DAILY RF: 0 Lactobacillus acidoph-L. bifid 1 billion cell Capsule 1 cap PO DAILY RF: 0 aspirin [Aspirin Low Dose] 81 mg Tablet,Delayed Release (Dr/Ec) 81 mg PO DAILY RF: 0 montelukast [Singulair] 10 mg Tablet 10 mg PO DAILY RF: 0 venlafaxine [Effexor XR] 37.5 mg Capsule,Extended Release 24hr 37.5 mg PO DAILY RF: 0 rosuvastatin [Crestor] 10 mg Tablet 10 mg PO DAILY RF: 0 DS: Data Vitals/I&O Vitals and I&O: Vital Signs Temperature 36.3 C L 07/15/21 12:30 Temperature Source Skin 07/15/21 12:30 Pulse 69 07/15/21 12:30 Pulse Rhythm Regular 07/15/21 13:12 Respiratory Rate 16 07/15/21 12:30 Respiratory Effort Non-Labored 07/15/21 13:12 Respiratory Depth Normal 07/15/21 13:12 Respiratory Pattern Normal 07/15/21 13:12 Blood Pressure 87/58 L 07/15/21 12:30 Blood Pressure Position Supine 07/14/21 11:57 Pulse Oximetry 92 07/15/21 12:30 Respiratory End-tidal CO2 42 07/15/21 11:17 Oxygen Delivery Method Room Air 07/15/21 12:30 Oxygen Flow Rate 0 07/15/21 12:30 Pain Level 2 07/15/21 12:30 Intake & Output 07/14/21 07/15/21 07/15/21 23:59 11:59 23:59 Intake Total 250 / 250 2330.667 / 2380.667 50 / 2380.667 Output Total 800 / 800 200 / 300 100 / 300 Balance -550 / -550 2130.667 / 2080.667 -50 / 2080.667 Weight 136.36 kg 136.36 kg Intake: IV 250 / 250 2330.667 / 2380.667 50 / 2380.667 Output: Urine 800 / 800 200 / 300 100 / 300 Other: Urine Color Yellow Straw Pale Urine Appearance Clear Clear Clear Sediment Urine Odor None None None Emesis Description None None Voiding Methods Bedside Commode Bedside Commode Bedside Commode Data Completed and Pending Labs on day of discharge: Labs from last 24 hours 07/15/21 07/15/21 07/15/21 11:58 06:20 06:20 WBC 6.83 D RBC 3.24 L Hgb 9.1 L 8.9 L Hct 29.0 L 28.3 L MCV 87.3 MCH 27.5 MCHC 31.4 L RDW 13.4 Plt Count 227 MPV 9.5 Immature Gran % 0.3 Neutrophils % 59.5 Lymphocytes % 28.4 Monocytes % 8.2 Eosinophils % 2.3 Basophils % 1.3 Nucleated RBC % 0 Absolute Neutrophils 4.06 Absolute Lymphocytes 1.94 Absolute Monocytes 0.56 Absolute Eosinophils 0.16 Absolute Basophils 0.09 Sodium 144 Potassium 3.9 Chloride 110 H Carbon Dioxide 29.4 Anion Gap 4.6 BUN 29 H D Creatinine 0.9 Estimated GFR/1.73 m2 >= 60.00 Glucose 96 Calcium 8.3 L SARS-CoV-2 (PCR) 07/15/21 07/14/21 07/14/21 01:20 20:27 13:55 WBC RBC Hgb 8.9 L 9.5 L Hct 28.1 L 29.7 L MCV MCH MCHC RDW Plt Count MPV Immature Gran % Neutrophils % Lymphocytes % Monocytes % Eosinophils % Basophils % Nucleated RBC % Absolute Neutrophils Absolute Lymphocytes Absolute Monocytes Absolute Eosinophils Absolute Basophils Sodium Potassium Chloride Carbon Dioxide Anion Gap BUN Creatinine Estimated GFR/1.73 m2 Glucose Calcium SARS-CoV-2 (PCR) Negative [facility] Medical History Detached retina, left Replaced 50yrs ago with a plastic buckle Surgical History [place] [facility] [place] of knee replacement Bilateral knee replament in 2005, Right knee redone in 2014 History of shoulder surgery Both Shoulders replaced Right one in 2014, left in 2017. Left one got infection had a spacer for a year then had to be redone backwards. Social History Smoking/Tobacco Use Status: Never Smoking risk assessment performed?: Yes Alcohol Intake: never Drug use: Never Substance use type: does not use Do you feel safe at home: Yes Additional Social history: Lives at home with her and her dog
--- NOTE | 2021-07-15 16:15 | PGE_ITS ---
Date of Service Date of service: 07/15/21 Time of Service: 16:17 Assessment and Plan Assessment and plan (1) Acute GI bleeding: Start date: 07/15/21 Start time: 16:28 Status: Acute Assessment and plan: vitals stable, H&H 07/15 9.1 continue protonix 40 mg IV BID stop asa Monitor H&H No bleeding per scope. Will continue protonix and carafate (2) Anemia due to blood loss, acute: Start date: 07/15/21 Start time: 16:35 Status: Acute Assessment and plan: stable monitor h/h (3) S/P TAVR (transcatheter aortic valve replacement): Start date: 07/15/21 Start time: 16:36 Status: Chronic Assessment and plan: stable, will monitor per outpatient cardiology. (4) Bloody diarrhea: Start date: 07/15/21 Start time: 16:36 Status: Resolved Assessment and plan: none since admission (5) Afib: Start date: 07/15/21 Start time: 16:36 Status: Chronic Assessment and plan: rate controlled continue home medication hold anticoagulation discussed with Dr Fowler Subjective Subjective Patient reports: other Interval history since last seen: Patient was initially going to home as endoscope revealed only gastritis and deuodenitis, however she was feeling weak when ambulating with nursing, therefore will keep overnight, hydrate and have her work with PT tomorrow. Consult placed. She will need to stop ASA. Xarelto restarted. Soft diet. continue protonix BID with carafate AC&HS. Exam Const General: cooperative and no acute distress HENNE Head: normal to inspection Face and sinus: normal facial exam Eyes General: appearance normal, both eyes and all related structures EOM: EOM intact bilaterally Neck Neck: normal visual inspection Lymphatic: no lymphadenopathy noted Chest Chest: normal inspection of the chest Resp Effort & Inspection: normal respiratory effort and able to speak in complete sen tences Auscultation: clear to auscultation bilaterally Cardio Rate: regular rate Rhythm: regular rhythm GI Inspection: normal to inspection Palpation: soft, not firm, not rigid and nontender Auscultation: hypoactive bowel sounds Skin General skin exam: no rashes or lesions noted Neuro General: patient alert, patient awake and patient oriented x3 Cognition: normal cognition Speech: speech normal Extrem General: normal to inspection, full ROM, capillary refill normal, no calf tenderness bilaterally and no edema Other: weakness Psych Appearance: grossly normal Mental Status: mental status grossly normal Speech and Movement: speech and movement normal Affect: normal affect Objective Last Vital Signs Temp 36.3 C L 07/15/21 12:30 Pulse 69 07/15/21 12:30 Resp 16 07/15/21 12:30 BP 107/72 07/15/21 14:36 Pulse Ox 92 07/15/21 12:30 Laboratory Results - last 24 hr 07/14/21 07/15/21 07/15/21 20:27 01:20 06:20 WBC RBC Hgb 9.5 L 8.9 L Hct 29.7 L 28.1 L MCV MCH MCHC RDW Plt Count MPV Immature Gran % Neutrophils % Lymphocytes % Monocytes % Eosinophils % Basophils % Nucleated RBC % Absolute Neutrophils Absolute Lymphocytes Absolute Monocytes Absolute Eosinophils Absolute Basophils Sodium 144 Potassium 3.9 Chloride 110 H Carbon Dioxide 29.4 Anion Gap 4.6 BUN 29 H D Creatinine 0.9 Estimated GFR/1.73 m2 >= 60.00 Glucose 96 Calcium 8.3 L 07/15/21 07/15/21 06:20 11:58 WBC 6.83 D RBC 3.24 L Hgb 8.9 L 9.1 L Hct 28.3 L 29.0 L MCV 87.3 MCH 27.5 MCHC 31.4 L RDW 13.4 Plt Count 227 MPV 9.5 Immature Gran % 0.3 Neutrophils % 59.5 Lymphocytes % 28.4 Monocytes % 8.2 Eosinophils % 2.3 Basophils % 1.3 Nucleated RBC % 0 Absolute Neutrophils 4.06 Absolute Lymphocytes 1.94 Absolute Monocytes 0.56 Absolute Eosinophils 0.16 Absolute Basophils 0.09 Sodium Potassium Chloride Carbon Dioxide Anion Gap BUN Creatinine Estimated GFR/1.73 m2 Glucose Calcium
--- NOTE | 2021-07-15 17:14 | CHAPLAIN ---
Tianna was pleasant and let me know she's being discharged later today and looking forward to going home.
[2021-07-15] MEDS: Ascorbic Acid 500 MG TAB PO (19:45)
[2021-07-16] MEDS: Normal Saline 1,000 ML 125 ML IV (04:09)
[2021-07-16] MEDS: Normal Saline Flush 10 ML SYR IVP (04:09)
[2021-07-16 07:34] VITALS: BP 94/48; PULSE 64; RESP 19; TEMP 36.8; O2SAT 96
[2021-07-16] MEDS: Cholecalciferol (Vitamin D3) 1,000 UNIT TAB 5000 UNITS PO (07:48)
[2021-07-16] MEDS: Pantoprazole 40 MG VIAL IVP (07:48)
[2021-07-16] MEDS: Rivaroxaban 10 MG TABLET 20 MG PO (07:49)
[2021-07-16] MEDS: Sucralfate 1 GM TAB PO ×2 (07:49→11:24)
[2021-07-16] MEDS: Rosuvastatin 10 MG TAB PO (07:50)
[2021-07-16] MEDS: Lactobacillus Acidophilus CAP 1 CAP PO (07:50)
[2021-07-16] MEDS: Ascorbic Acid 500 MG TAB PO (07:50)
[2021-07-16 07:56] LABS: Anion Gap 6.6 mmol/L (3-11); BUN 20 mg/dL (7-18); CO2 27.4 mmol/L (21.0-32.0); CREATININE 0.9 mg/dL (0.55-1.02); Calcium 8.5 mg/dL (8.5-10.1); Chloride 110 mmol/L (98-107); Glucose 87 mg/dL (74-106); Potassium 3.8 mmol/L (3.5-5.1); Sodium 144 mmol/L (136-145)
[2021-07-16 07:58] LABS: HCT 25.4 % (36.0-46.0); HGB 7.8 g/dL (11.2-15.7); MCH 27.6 pg (27.0-33.0); MCHC 30.7 % (32.0-36.0); MCV 89.8 fL (80-95); Platelet Count 216 10^3/uL (130-400); RBC 2.83 10^6/uL (3.93-5.22); RDW 13.6 % (11.7-14.6); RDW-SD 44.8 fL; WBC 6.12 10^3/uL (4.4-10.8)
[2021-07-16 07:59] LABS: Abs Immature Grans 0.02 10^3/uL (0.0-0.06); Absolute Basophil Count 0.09 10^3/uL (0.0-0.2); Absolute Eosinophil Count 0.33 10^3/uL (0.0-0.7); Absolute Monocyte Count 0.51 10^3/uL (0.1-0.8); Absolute Neutrophil Count 3.17 10^3/uL (1.2-6.7); Basophils % 1.5; Eosinophils % 5.4; Immature Grans % 0.3; Lymphocytes % 32.7; MPV 9.6 fL (8.0-11.0); Monocytes % 8.3; Neutrophils % 51.8
[2021-07-16] MEDS: Atenolol 25 MG TAB PO (10:24)
[2021-07-16] MEDS: Nystatin POWDER 15 GM JAR TP (10:25)
--- NOTE | 2021-07-16 11:26 | PT.INIE ---
Date of service: 07/16/21 Time of Service: 10:05 PT Notes Visit Reasons: GI Bleed Inpatient Physical Therapy Evaluation Date: July Referring Doctor: Christen Manning PT Orders: PT CONSULT Precautions: Standard Patient Profile/Admitting Diagnosis: Tianna presented to ED for reports of black tarry stooling, feeling like headed. Has had a remote history of GI bleeding. Recent TAVR. anticoagulated on xarelto for history of afib. Admitted for observation due to shortness of breath and weakness due to anemia. PMHX: (Updated 07/14/21 @ 15:15 by Fidelia Mukherjee NP) Detached retina, left Replaced 50yrs ago with a plastic buckle Surgical History (Updated 07/14/21 @ 15:18 by Fidelia Mukherjee NP) History of heart valve replacement TAVR 06/17/21 at [facility] [place] History of knee replacement Bilateral knee replament in 2005, Right knee redone in 2014 History of shoulder surgery Both Shoulders replaced Right one in 2014, left in 2016. Left one got infection had a spacer for a year then had to be redone backwards. Social History/Home Situation: Lives alone in a private home with her dog Marii. She is independent at baseline noting that she utilizes her furniture for support while ambulating in home. Utilizes the power chair at the grocery store. Independent with driving. Current Functional Limitations: Decreased walking tolerance Equipment Owned/DME: walker, cane Subjective: Tianna notes that she is feeling so much better and is hoping to return home today. Feeling much stronger and has been up to the bathroom and was able to put her pants on without difficulty. She notes on she could hardly breath or do anything of the sort. Objective: General Observation: IV access Mental Status: Alert and oriented x3 Pain: noted daily joint pain due to shoulder and knee surgery did not rate her pain on VAS ROM: Right Upper Extremity: Demonstrated WFL AROM R UE Left Upper Extremity: Demonstrated WFL AROM L UE Right Lower Extremity: Demonstrated WFL AROM R LE Left Lower Extremity: Demonstrated WFL AROM L LE Strength: Right Upper Extremity: Demonstrated good functional strength R UE Left Upper Extremity: Demonstrated good functional strength L UE Right Lower Extremity: Hip flexion 4/5, knee flexion 5/5, knee extension 5/5, DF 5/5 Left Lower Extremity: Hip flexion 4/5, knee flexion 5/5, knee extension 5/5, DF 5/5 Bed Mobility/Transfers: Sit-stand: SBA Stand-sit: supervision Gait: FWW,Full WBing,SBA 25 ftx2 with mild SOB. Balance: Static Sitting: Normal Dynamic Sitting: Normal Static Standing: Good Dynamic Standing: Good Special Tests: Mobility Limitations Standardized Measure [facility] AM-PAC 6 clicks Basic Mobility Inpatient Short Form: Raw Score: 22 CMS Score: 20.91% Informed Consent/Education: Patient instructed in purpose of PT consult and plan of care. Assessment: Patient is a 75 year old female referred to physical therapy services with the diagnosis of GI bleed. Patient presents with clinical signs and symptoms consistent with diagnosis. Demonstrated good functional transfers with supervision or standby assist only. Recommend continued utilization of front wheeled walker for ambulation at home and in community. [place] is [place] Low 25793 complexity based on the following: History: As above Examination: As above Presentation: Stable Decision Making: Low Plan of Care/Treatment Plan: Patient at this time back to baseline mobility. Recommend continued use of walker for ambulation. Discharge home per MD order. DISCHARGE RECOMMENDATIONS: Home with no services TREATMENT CODE/TIME: 41265 IE 20 minutes, 10:05 am [place] Black [facility] Disclaimer: This note was created using [employer] voice recognition software. It was reviewed for major content. However, there may be multiple small discrepancies and errors due to the voice recognition aspects of the software.
--- NOTE | 2021-07-16 12:18 | W.PM.PROGNOT ---
Date of Service Date of service: 07/16/21 Time of Service: 12:18 Objective Last Vital Signs Temp 98.2 F 07/16/21 07:34 Pulse 64 07/16/21 07:34 Resp 19 07/16/21 07:34 BP 94/48 L 07/16/21 07:34 Pulse Ox 96 07/16/21 07:34 Laboratory Results - last 24 hr 07/16/21 07/16/21 06:49 06:49 WBC 6.12 RBC 2.83 L Hgb 7.8 L Hct 25.4 L MCV 89.8 MCH 27.6 MCHC 30.7 L RDW 13.6 Plt Count 216 MPV 9.6 Immature Gran % 0.3 Neutrophils % 51.8 Lymphocytes % 32.7 Monocytes % 8.3 Eosinophils % 5.4 Basophils % 1.5 Absolute Neutrophils 3.17 Absolute Lymphocytes 2.00 Absolute Monocytes 0.51 Absolute Eosinophils 0.33 Absolute Basophils 0.09 Sodium 144 Potassium 3.8 Chloride 110 H Carbon Dioxide 27.4 Anion Gap 6.6 BUN 20 H D Creatinine 0.9 Estimated GFR/1.73 m2 >= 60.00 Glucose 87 Calcium 8.5
[2021-07-16 12:24] LABS: HCT 27.8 % (36.0-46.0); HGB 8.7 g/dL (11.2-15.7)
--- NOTE | 2021-07-16 13:18 | W.PM.DS.N ---
Date of service: 07/16/21 Time of Service: 13: DS: Diagnosis Discharge Diagnosis (1) Acute GI bleeding: Start date: 07/16/21 Start time: 13:19 Status: Resolved Asessment and Plan: Resolved, she has not had bleeding since admission EGD yesterday with Dr. Kam revealed gastritis and dueodinitis she is s/p TAVAR will continue xarelto, d/c asa. Protonix BID with Carafate AC and HS. She was feeling week yesterday. Gave IV hydration overnight, feeling much better. ready for discharge. PT states clear for home d/c no services needed. (2) Anemia due to blood loss, acute: Start date: 07/16/21 Start time: 13:23 Status: Acute Asessment and Plan: H/H stable hemoglobin 7.8 this am. Dilutional. repeat 8.7 at noon. (3) S/P TAVR (transcatheter aortic valve replacement): Start date: 07/16/21 Start time: 13:23 Status: Chronic Asessment and Plan: as above will continue xarelto (4) Bloody diarrhea: Start date: 07/16/21 Start time: 13:23 Status: Resolved Asessment and Plan: as above (5) Afib: Start date: 07/16/21 Start time: 13:24 Status: Chronic Asessment and Plan: Rate controlled s/p tavr, on xarelto discussed with Dr. Juan Discharge Plan Disposition Patient Disposition: HOME Condition: Stable Discharge Details Reason For Visit: GI Bleed Admit Date/Time: 07/14/21 13:22 Admit Provider: Mark Fowler Attending Provider: Mark Fowler Primary Care Provider: [facility] Course Hospital Course: Admitted from ED for black tarry stools. She was found on the side of the road in her car. Brought to the hospital for black tarry stools and feeling light headed. Remote history of bleeding. PMH of recent TAVR, afib on xarelto and asa. HTN, Depression, HLD, she was admitted for observation. Surgery was consulted. EGD preformed yesterday no bleeding present just gastritis and dueodinitis. Dr. Conde recommends protonix BID with carafate AC & HS. D/c asa ok to continue xarelto. She has not had any bleeding since admission. She was going to be discharged yesterday but when ambulating with nursing became weak and was not feeling well. Hydrated overnight with IVF, PT worked with patient this am and she did well, they recommend home with no services. Patient is being discharged home. Home Meds and New Rx's Prescriptions: New ascorbic acid (vitamin C) [Vitamin C] 500 mg Tablet 500 mg PO BID Qty: 60 RF: 0 ferrous sulfate 220 mg (44 mg iron)/5 mL elixir 225 mg PO DAILY Qty: 100 RF: 0 pantoprazole [Protonix] 40 mg tablet,delayed release (DR/EC) 40 mg PO DAILY Qty: 60 RF: 0 sucralfate 1 gram Tablet 1 g PO AC & HS Qty: 120 RF: 0 Continued atenolol 25 mg Tablet 25 mg PO BID RF: 0 Xarelto 20 mg Tablet 20 mg PO DAILY RF: 0 spironolactone [Aldactone] 25 mg Tablet 25 mg PO DAILY RF: 0 vitamin K2 100 mcg Capsule 100 mcg PO DAILY RF: 0 coenzyme Q10 [CoQ-10] 100 mg Capsule 200 mg PO DAILY RF: 0 vitamin [id number] B1 100-1 mg/mL Solution 100 ml IM DAILY RF: 0 cholecalciferol (vitamin D3) [Vitamin D3] 125 mcg (5,000 unit) Tablet 125 mcg PO DAILY RF: 0 magnesium citrate 125 mg Capsule 225 mg PO DAILY RF: 0 Lactobacillus acidoph-L. bifid 1 billion cell Capsule 1 cap PO DAILY RF: 0 montelukast [Singulair] 10 mg Tablet 10 mg PO DAILY RF: 0 venlafaxine [Effexor XR] 37.5 mg Capsule,Extended Release 24hr 37.5 mg PO DAILY RF: 0 rosuvastatin [Crestor] 10 mg Tablet 10 mg PO DAILY RF: 0 Discontinued aspirin [Aspirin Low Dose] 81 mg Tablet,Delayed Release (Dr/Ec) 81 mg PO DAILY RF: 0 Discharge Instructions Instructions: Gastritis (DC), Anemia (DC), Duodenitis (DC) Additional Instructions: STOP taking aspirin, Do not take ibuprofen, NSAIDS You can take xarelto Take protonix twice a day and carafate 30 min before ever meal and at bedtime Follow up with your primary provider in 1-2 weeks. Activity:: Activity as Tolerated Equipment/Supplies:: No Equipment Needed Diet:: Low Sodium Discharge Orders Discharge Orders: Discharge Order (Routine); Ordered 07/16/21 Ordered By: Christen Manning DS: Summary Time Spent with Patient providing and/or coordinating discharge services: Less than 30 minutes Status at Discharge Functional status at discharge: independent ambulation Overall status at discharge: patient is back to baseline Mental Status: mental status grossly normal Speech and Movement: speech and movement normal Mood: congruent mood Affect: normal affect Exam Const General: cooperative and no acute distress HENMT Head: normal to inspection Face and sinus: normal facial exam Eyes General: appearance normal, both eyes and all related structures EOM: EOM intact bilaterally Neck Neck: normal visual inspection Lymphatic: no lymphadenopathy noted Chest Chest: normal inspection of the chest Resp Effort & Inspection: normal respiratory effort and able to speak in complete sentences Auscultation: clear to auscultation bilaterally Cardio Rate: regular rate Rhythm: regular rhythm GI Inspection: normal to inspection Palpation: soft, not firm, not rigid and nontender Auscultation: hypoactive bowel sounds Skin General skin exam: no rashes or lesions noted Neuro General: patient alert, patient awake and patient oriented x3 Cognition: normal cognition Speech: speech normal Extrem General: normal to inspection, full ROM, capillary refill normal, no calf tenderness bilaterally and no edema Psych Appearance: grossly normal Mental Status: mental status grossly normal Speech and Movement: speech and movement normal Mood: congruent mood Affect: normal affect DS: Data Vitals/I&O Vitals and I&O: Vital Signs Temperature 36.8 C 07/16/21 07:34 Temperature Source Tympanic 07/16/21 07:34 Pulse 64 07/16/21 07:34 Pulse Rhythm Regular 07/15/21 13:12 Respiratory Rate 19 07/16/21 07:34 Respiratory Effort Non-Labored 07/16/21 05:55 Respiratory Depth Normal 07/16/21 05:55 Respiratory Pattern Normal 07/16/21 05:55 Blood Pressure 94/48 L 07/16/21 07:34 Blood Pressure Position Supine 07/14/21 11:57 Pulse Oximetry 96 07/16/21 07:34 Respiratory End-tidal CO2 42 07/15/21 11:17 Oxygen Delivery Method Room Air 07/16/21 07:34 Oxygen Flow Rate 0 07/16/21 07:34 Pain Level 0 07/16/21 07:34 Intake & Output 07/15/21 07/16/21 07/16/21 23:59 11:59 23:59 Intake Total 612.667 / 2943.334 360 / 360 Output Total 600 / 800 450 / 450 Balance 12.667 / 2143.334 -90 / -90 Intake: IV 372.667 / 2703.334 Oral 240 / 240 360 / 360 Output: Urine 600 / 800 450 / 450 Other: Urine Color Straw Yellow Urine Appearance Cloudy Clear Urine Odor Strong Normal Stool Size Moderate Stool Characteristics Soft Voiding Methods Bedside Commode Toilet Data Completed and Pending Labs on day of discharge: Labs from last 24 hours 07/16/21 07/16/21 07/16/21 12:10 06:49 06:49 WBC 6.12 RBC 2.83 L Hgb 8.7 L 7.8 L Hct 27.8 L 25.4 L MCV 89.8 MCH 27.6 MCHC 30.7 L RDW 13.6 Plt Count 216 MPV 9.6 Immature Gran % 0.3 Neutrophils % 51.8 Lymphocytes % 32.7 Monocytes % 8.3 Eosinophils % 5.4 Basophils % 1.5 Absolute Neutrophils 3.17 Absolute Lymphocytes 2.00 Absolute Monocytes 0.51 Absolute Eosinophils 0.33 Absolute Basophils 0.09 Sodium 144 Potassium 3.8 Chloride 110 H Carbon Dioxide 27.4 Anion Gap 6.6 BUN 20 H D Creatinine 0.9 Estimated GFR/1.73 m2 >= 60.00 Glucose 87 Calcium 8.5 PFSH Medical History Detached retina, left Replaced 50yrs ago with a plastic buckle Surgical History History of heart valve replacement TAVR 06/17/21 at [facility] [place] History of knee replacement Bilateral knee replament in 2005, Right knee redone in 2014 History of shoulder surgery Both Shoulders replaced Right one in 2014, left in 2017. Left one got infection had a spacer for a year then had to be redone backwards. Social History Smoking/Tobacco Use Status: Never Smoking risk assessment performed?: Yes Alcohol Intake: never Drug use: Never Substance use type: does not use Do you feel safe at home: Yes Additional Social history: Lives at home with her and her dog
--- NOTE | 2021-07-16 14:00 | PDOC.CMDIS ---
- If Service Date Differs Date of service: 07/16/21 Time of Service: 14:00 LACE Index Scoring Tool - Questions: Length of Stay (in days): 2 Acuity (Admit via E.D.?): Yes E.D. Visits: 1 - Answers: Total Score: 6 Risk of Readmission: Low Risk Care Management Discharge Reason for Hospitalization: GI Bleed Discharge Plan: Tianna will discharge home with no new services. She will follow up with her PCP and plan of care as prescribed. She will transport via private vehicle with her friend and neighbor. Patient/Family Education Needs: Review discharge instructions including limitations, activity and medications and discuss Ask Me Three.
--- NOTE | 2021-07-18 17:30 | INDS_ITS ---
Date of service: 07/18/21 PT Notes Visit Reasons: GI Bleed Inpatient Physical Therapy Evaluation Date: July Dates of Service: 07/16/2021 only This is a clinical summary of care provided for the duration of dates listed above. No charge was made in the completion of this documentation. Referring Doctor: Christen Manning NP PT Orders: PT CONSULT Precautions: Standard Patient Profile/Admitting Diagnosis: Tianna presented to ED for reports of black tarry stooling, feeling like headed. Has had a remote history of GI bleeding. Recent TAVR. Anticoagulated on Xarelto for history of afib. Admitted for observation due to shortness of breath and weakness due to anemia. PMHX: Medical History (Updated 07/14/21 @ 15:15 by Fidelia Mukherjee NP) Detached retina, left Replaced 50yrs ago with a plastic buckle Surgical History (Updated 07/14/21 @ 15:18 by Fidelia Mukherjee NP) History of heart valve replacement [place]R 06/17/21 [place] [facility] [place] History of knee replacement Bilateral knee replament in 2005, Right knee redone in 2014 History of shoulder surgery Both Shoulders replaced Right one in 2014, left in 2016. Left one got infection had a spacer for a year then had to be redone backwards. Social History/Home Situation: Lives alone in a private home with her dog Marii. She is independent at baseline noting that she utilizes her furniture for support while ambulating in home. Utilizes the power chair at the grocery store. Independent with driving. Current Functional Limitations: Decreased walking tolerance Equipment Owned/DME: walker, cane Subjective: NT. See most recent [facility] notes. Objective: General Observation: NT. See most recent [facility] notes. Mental Status: NT. See most recent [facility] notes. Pain: NT. See most recent [facility] notes. ROM: Right Upper Extremity: Demonstrated WFL AROM R UE Left Upper Extremity: Demonstrated WFL AROM L UE Right Lower Extremity: Demonstrated WFL AROM R LE Left Lower Extremity: Demonstrated WFL AROM L LE Strength: Right Upper Extremity: Demonstrated good functional strength R UE Left Upper Extremity: Demonstrated good functional strength L UE Right Lower Extremity: Hip flexion 4/5, knee flexion 5/5, knee extension 5/5, DF 5/5 Left Lower Extremity: Hip flexion 4/5, knee flexion 5/5, knee extension 5/5, DF 5/5 Bed Mobility/Transfers: Sit-stand: SBA Stand-sit: supervision Gait: FWW,Full WBing, SBA 25 ftx2 with mild SOB. Balance: Static Sitting: Normal Dynamic Sitting: Normal Static Standing: Good Dynamic Standing: Good Assessment: Patient is a 75 year old female referred to physical therapy services with the diagnosis of GI bleed. Patient presents with clinical signs and symptoms consistent with diagnosis. Demonstrated good functional transfers with supervision or standby assist only. Recommend continued utilization of front wheeled walker for ambulation at home and in community. DISCHARGE RECOMMENDATIONS: Home with no services TREATMENT CODE/TIME: CO Thank you for the opportunity to participate in the care of this patient. Judie Felton PT, DPT, CLT [facility] [place], [place]
== END 2021-07-16 14:32 | disposition home or self-care (01) | DRG 378 ==
LOC: ER 14:13 → MS 14:30
PROVIDERS: Family Medicine; Nurse Practitioner Acute Care; Nurse Practitioner Family; Physician Assistant; Surgery; Admitting Provider Family Medicine; Emergency Provider Physician Assistant; PCP Family Medicine; Visit Provider Family Medicine
PROC: 0DJ68ZZ Inspection of Stomach, Via Natural or Artificial Opening Endoscopic (ICD-10-PCS; CPT 43235; principal; 2021-07-15 13:15)
DX: K29.81 Duodenitis with bleeding (principal); D62 Acute posthemorrhagic anemia; I48.20 Chronic atrial fibrillation, unspecified; K29.71 Gastritis, unspecified, with bleeding; Z79.01 Long term (current) use of anticoagulants; Z95.2 Presence of prosthetic heart valve; K44.9 Diaphragmatic hernia without obstruction or gangrene; I10 Essential (primary) hypertension; F32.A Depression, unspecified; E78.5 Hyperlipidemia, unspecified
CPT/HCPCS: 43239; 36415; 80048; 80053; 87635; 93005; 96374; 97161; 99221; 99285; 81003; 81015; 83735; 84484; 85014; 85018; 85025; 93010; 99223; 99232; 99238; J1756; J2704